=== PATIENT | male | born 1970 | race Caucasian/White ===

== ENCOUNTER 2020-06-05 08:39 | Day surgery (SDC) | payer OTHER, SELFPAY ==
[2020-05-27 13:33] VITALS: BMI 25.2
[2020-05-27 15:06] LABS: Absolute Lymphocyte Count 1.47 X10^3/uL (0.83-4.51); Basophil# 0.03 X10^3/uL; Basophil% 0.6 % (0-1); Eosinophil# 0.15 X10^3/uL; Eosinophils% 2.8 % (0-5); Hematocrit 40.8 % (40-54); Hemoglobin 12.9 g/dL (13.0-16.5); Lymphocyte # 1.47 X10^3/ul (4.0); Lymphocyte % 27.3 % (19-41); Mean Corp Hgb Conc 31.6 g/dL (32-36); Mean Corpuscular Hgb 29.9 pg (27.0-32.0); Mean Corpuscular Volume 94.7 fL (80-94); Mean Platelet Vol. 9.6 fl (6.2-12.0); Monocyte# 0.73 X10^3/uL; Monocyte% 13.6 % (0-10); NRBC Flagged by Analyzer 0 % (0-5); Neutrophil # 2.99 X10^3/uL (2.7-7.7); Neutrophil % 55.5 % (47-70); Platelet Count 281 K/mm3 (150-450); RBC Distribution Width CV 12.1 % (11.6-14.6); RBC Distribution Width SD 42.8 fl (35.1-43.9); Red Blood Count 4.31 M/mm3 (4.6-6.2); White Blood Count 5.4 K/mm3 (4.4-11.0)
[2020-05-27 15:12] LABS: Prothrombin Time (Protime)PT. 12.2 SECONDS (11.7-14.9)
[2020-05-27 15:13] LABS: Partial Thromboplast Time 26.8 Seconds (24.1-36.2)
[2020-05-27 15:29] LABS: Anion Gap 3 (5-15); BUN 10 mg/dL (7-18); BUN/Creat Ratio 10.5 RATIO (10-20); Calcium,Total 8.7 mg/dL (8.5-10.1); Chloride 102 mmol/L (98-107); Creatinine, Serum 0.96 mg/dL (0.70-1.30); EST Glomerular Filtration Rate 88 mL/min (>60); Est Glom Filt Rate - Afr Amer 106 mL/min (>60); Glucose 313 mg/dL (74-106); Potassium 5.2 mmol/L (3.5-5.1); Sodium Level 133 mmol/L (136-145)
[2020-06-04 08:08] VITALS: BMI 24.5
--- NOTE | 2020-06-05 08:00 | HP_ITS ---
[facility] History of Present Illness Details: 05/01/20: 50-year-old male with past medical history of hypertension, dyslipidemia, diabetes for 25 years, diabetic neuropathy involving his legs confirmed with nerve conduction studies coming to see me for leg pain. The pain is there all the time and has been going on since 2013. He says that it started all of a sudden and has been intense since then. It involves his feet and distal part of his legs. In addition to this discomfort he also has calf pain which is worse with walking. 05/27/20:Since last visit patient underwent CTA which revealed stenoses in the SFA bilaterally. Left had mild to moderate stenoses throughout in the right had mild disease throughout except for a focal severe lesion in the SFA and a moderate to severe lesion in the popliteal. Patient did not have severe disease in the below-knee vessels and the iliac arteries. Intake Vital Signs 05/27/20 Height 5 ft 9 in 05/27/20 Weight: 166 lb 05/27/20 BMI 24.5 05/27/20 BP 136/66 H 05/27/20 Blood Pressure Location Lt brachial 05/27/20 Position Sitting 05/27/20 Respiration 16 05/27/20 Pulse 84 05/27/20 Pulse Source Auscultation Intake Visit Reasons: 2-4 WK F/U ([facility]) Podiatric Surgeon Required: No Accompanied by: Significant Other Is patient in pain?: No Allergies No Known Allergies Allergy (Unverified 05/27/20 13:28) Medications aspirin 81 mg tablet,delayed release 81 mg PO DAILY 04/29/20 [History Confirmed 05/27/20] atorvastatin 10 mg tablet 10 mg PO QHS 04/29/20 [History Confirmed 05/27/20] duloxetine 30 mg capsule,delayed release 30 mg PO DAILY 04/29/20 [History Confirmed 05/27/20] duloxetine 60 mg capsule,delayed release 60 mg PO DAILY 04/29/20 [History Confirmed 05/27/20] insulin glargine 100 unit/mL (3 mL) subcutaneous pen 40 unit SC QPM ml 04/29/20 [History Confirmed 05/27/20] insulin lispro 100 unit/mL subcutaneous pen See Rx Instructions SC .COMPLEX 04/29/20 [History Confirmed 05/27/20] linaclotide 72 mcg capsule 72 mcg PO DAILY 04/29/20 [History Confirmed 05/27/20] lisinopril 2.5 mg tablet 2.5 mg PO DAILY 04/29/20 [History Confirmed 05/27/20] omeprazole 40 mg capsule,delayed release 40 mg PO DAILY 04/29/20 [History Confirmed 05/27/20] multivitamin 1 tab PO DAILY 05/27/20 [History Confirmed 05/27/20] FOR[facility]LY [facility], [facility] Medical History Hyperlipidemia (Chronic) Essential hypertension (Chronic) Type 2 diabetes mellitus without complication (Chronic) Acute coronary syndrome (Resolved) Atherosclerosis of coronary artery of [place] heart without angina pectoris (Chronic) History of DVT (deep vein thrombosis) (Resolved) Non-ST elevation CT (NSTEMI) (Resolved) Velásquez's esophagus (Chronic) Diabetic neuropathy (Chronic) Surgical History History of left heart catheterization (Chronic ~09/2018) Social History (Updated 05/27/20 @ 14:[address] Anirudh Vásquez MD) Smoking Status: Current every day smoker alcohol intake: never substance use type: does not use caffeine: Yes Type: coffee Number of servings: 18 ROS Const Const: Negative for fatigue, weakness, headache(s), frequent falls, difficulty sleeping or excessive sweating Eyes Eyes: Negative for loss of peripheral vision, transient loss of vision, blurry vision, double vision or tunnel vision ENT ENT: Positive for balance problems; negative for headache(s), dizziness or Nosebleed/epistaxis Cardio Chest Pain: No Palpitations: No Edema: None Muscle aches with walking: Bilateral Resp Respiratory: Negative for SOB with activity, SOB at rest, SOB orthopnea\SOB lying down, Cough or paroxysmal nocturnal dyspnea GI GI: Negative nausea, vomiting, heartburn or black,tarry stools : Negative for hematuria Musc Musc: Positive for muscle weakness (legs and feet), joint pain and balance problems; negative for muscle aches/ myalgia Skin Skin: Negative non-healing lesions, rash or unusual bruising Neuro Neuro: Negative for dizziness, lightheadedness, near syncope, syncope, frequent falls, headache(s), weakness, blurry vision, double vision or lack of coordination Abner Hematologic/Lymphatic: Negative for easy bleeding or easy bruising Endo Endo: Negative for fatigue, excessive sweating or increased thirst/drinking Psych Psych: Negative for anxiety or depression Allergy Allergy/Immunology: Negative for hives, Negative for rash Cardiology Exam Const Appearance: cooperative; negative acute distress Nutritional Appearance: well nourished Head Head: normocephalic and atraumatic Ears: hearing grossly normal bilaterally Nose: external nose normal Face and Sinus: face symmetric Mouth: moist mucous membranes Teeth and gingiva: fair dentition Eyes General: appearance normal, both eyes and all related structures Eyelids: eyelids normal Conjunctivae: conjunctivae normal Neck Neck: trachea midline and no JVD Chest Chest inspection: symmetric chest movement; negative pursed lip breathing Auscultation: Bilateral: Clear to Auscultation Cardio Rate: regular rate Rhythm: regular rhythm Heart sounds: S1 normal and S2 normal No Murmurs GI GI: normal to inspection Neuro General: alert, awake and oriented x3 Gait: Negative ataxic Skin Skin: no rashes or lesions noted; negative atrophy or jaundice Extremities Pulses: Diminished: Right Dorsalis Pedis Pulse, Left Dorsalis Pedis Pulse, Right Posterior Tibial Pulse, Left Posterior Tibial Pulse Lower Extremity Edema: None: Bilateral Musculoskel Musculoskeletal: No joint tenderness Psych Psychological: normal affect Assessment & Plan 1. Claudication I73.9 Plan Patient's leg pain is mostly from neuropathy. However he seems to have a component of claudication secondary to PVD as well. We will proceed with bilateral lower extremity angiography with possible COLOR REPAIRER and stenting of the right SFA. Depending on the findings during angiography on the left side he may need a staged COLOR REPAIRER and stent on the left side as well. Explained the risks and benefits to the patient in detail. Explained to him that there is also a neuropathic component to his pain which is not going to be cured with COLOR REPAIRER and stenting. Orders Orders: Basic Metabolic Profile (BMP) Today Partial Thromboplast Time Today Prothrombin Time w/INR Today CBC W/Diff, Automated Today 2. Essential hypertension I10 Plan Continue present medications Orders Orders: Basic Metabolic Profile (BMP) Today Partial Thromboplast Time Today Prothrombin Time w/INR Today CBC W/Diff, Automated Today 3. Hyperlipidemia, unspecified hyperlipidemia type E78.5 Plan Continue Lipitor Plan Detail Other Orders Orders: Basic Metabolic Profile (BMP) Today E11.9, I25.10 Partial Thromboplast Time Today E11.9, I25.10 Prothrombin Time w/INR Today E11.9, I25.10 CBC W/Diff, Automated Today E11.9, I25.10 Coding Level of Care Code Off vis,est,level 3 Diagnoses Claudication I73.9 Essential hypertension I10 Hyperlipidemia, unspecified hyperlipidemia type E78.5 ??Hyperlipidemia type: unspecified Coding Level of Care Code Off vis,est,level 3 Diagnoses Claudication I73.9 Essential hypertension I10 Hyperlipidemia, unspecified hyperlipidemia type E78.5 ??Hyperlipidemia type: unspecified
--- NOTE | 2020-06-12 11:58 | PCM.OPRPT ---
Problem List (1) Claudication Status: Acute Report of Operation Date of Procedure: 06/05/20 Pre-Operative Diagnosis: Peripheral vascular disease Post-Operative Diagnosis: Peripheral vascular disease Surgery/Procedure Performed:: Abdominal aortogram with iliofemoral runoff, right lower extremity angiogram, left lower extremity angiogram, third order catheter placement (right SFA) Description of Surgical Findings:: Description: Left common femoral artery access was obtained and a 6 Persian sheath was inserted. A pigtail catheter was inserted into the abdominal aorta and an abdominal aortogram with bilateral iliofemoral runoff was performed. The pigtail catheter was then exchanged for an Omni catheter which was advanced over wire into the right SFA and selective angiogram of the right lower extremity was performed. A left lower extremity angiogram was performed through the left common femoral artery sheath. At the end of the procedure the sheath was removed over wire and Perclose deployed. Patient tolerated the procedure well. There were no complications. Findings: Infrarenal abdominal aorta: [Mild luminal irregularities] Right: Common iliac artery: Mild luminal irregularities External iliac artery: Mild luminal irregularities Common femoral artery: Mild luminal irregularities Profunda femoral artery: Mild luminal irregularities Superficial femoral artery: Mild disease in the midportion Popliteal artery: Mild luminal irregularities Anterior tibial artery: [Patent] Tibioperoneal trunk: Patent Posterior tibial artery: Patent Peroneal artery: Patent Left: Common iliac artery: Mild luminal irregularities External iliac artery: Mild luminal irregularities Common femoral artery: Mild luminal irregularities Profunda femoral artery: [ Mild luminal irregularities] Superficial femoral artery: [Mild disease in the midportion] Popliteal artery: [Mild luminal irregularities ] Anterior tibial artery: [Patent in the proximal portion. There could be a short segment occlusion in the midportion with reconstitution via collaterals and patent distal part of the vessel. Tibioperoneal trunk: Patent Posterior tibial artery: Patent Peroneal artery: Patent - Complications None
== END 2020-06-05 13:45 | disposition home or self-care (01) ==
LOC: CLSP 08:43
PROVIDERS: Referring Provider Specialist; Visit Provider Specialist
DX: I73.9 Peripheral vascular disease, unspecified (principal); E11.40 Type 2 diabetes mellitus with diabetic neuropathy, unspecified; I10 Essential (primary) hypertension; E78.5 Hyperlipidemia, unspecified; I25.10 Atherosclerotic heart disease of native coronary artery without angina pectoris; I25.2 Old myocardial infarction; Z86.718 Personal history of other venous thrombosis and embolism; F17.200 Nicotine dependence, unspecified, uncomplicated
CPT/HCPCS: 36200; 36245; 36246; 36415; 75625; 75716; 80048; 85025; 85610; 85730; 99152; 99153; J7040; Q9967; C1760; C1769